=== PATIENT | male | born 1985 | race Caucasian/White ===

== ENCOUNTER 2021-03-11 09:32 | Emergency (ER) | payer SELFPAY ==
[2021-03-11 09:41] VITALS: BP 124/84; PULSE 66; TEMP 97; BMI 33.0
[2021-03-11] MEDS ORDERED: SODIUM CHLORIDE 1,000 ML IV STA (10:05)
[2021-03-11] MEDS ORDERED: morphine CARPU-JECT 4 MG/1 ML DISP.SYRIN IVPUSH ONE (10:05)
[2021-03-11] MEDS ORDERED: ONDANSETRON 4 MG/2 ML VIAL IVPUSH ONE (10:05)
[2021-03-11] MEDS ORDERED: morphine SULFATE 4 MG/ML VIAL ONE (10:54)
[2021-03-11] MEDS ORDERED: ONDANSETRON 4 MG/2 ML VIAL ONE (10:54)
[2021-03-11 11:02] LABS: BASO % 0.5 % (0-2.0); EOS % 0.4 % (0-4.5); HEMATOCRIT 40.5 % (35.4-49); LYMPH % 18.2 % (8-40); MCH 31.6 pg (25.7-33.7); MCHC 34.5 g/dl (32.0-35.9); MEAN CELL VOLUME 91.4 fl (80-96); MEAN PLT VOLUME 8.6 fl (7.5-11.1); NEUT % 75.9 % (42.8-82.8); PLATELET COUNT 213 10^3/uL (134-434); RBC 4.43 M/mm3 (4.00-5.60); RDW 13.1 % (11.9-15.9); WHITE BLOOD COUNT 8.1 K/mm3 (4.0-10.0)
[2021-03-11 11:21] LABS: CALCIUM 8.9 mg/dL (8.5-10.1)
[2021-03-11 11:22] LABS: ALBUMIN 4.3 g/dl (3.4-5.0); BLOOD UREA NITROGEN 14.6 mg/dL (7-18)
[2021-03-11 11:25] LABS: CREATININE 1.2 mg/dL (0.55-1.3)
[2021-03-11 11:26] LABS: BILIRUBIN,TOTAL 0.6 mg/dL (0.2-1)
[2021-03-11 11:27] LABS: TOT PROT 7.2 g/dl (6.4-8.2)
[2021-03-11 11:45] LABS: EPI CELLS 3 /uL (0-25.1); HYALINE CASTS 1 /uL (0-3.1); URINE APPEARANCE TURBID; URINE BACTERIA 2 /uL (0-1359); URINE BILIRUBIN NEGATIVE (NEGATIVE); URINE COLOR DK YELLOW; URINE GLUCOSE (UA) NEGATIVE (NEGATIVE); URINE KETONE TRACE (NEGATIVE); URINE LEUK ESTERASE NEGATIVE (NEGATIVE); URINE NITRITE NEGATIVE (NEGATIVE); URINE PROTEIN 1+ (NEGATIVE); URINE WBC 30 /uL (0-25.8)
[2021-03-11] MEDS ORDERED: TAMSULOSIN HCL 0.4 MG CAP PO ONE (12:25)
[2021-03-11] MEDS ORDERED: TAMSULOSIN HCL 0.4 MG CAP ONE (12:40)
[2021-03-11 12:56] LABS: URINE RBC 831.9 /uL (0-23.9)
== END 2021-03-11 12:56 | disposition home or self-care (01) ==
LOC: JER 09:32
PROC: 3E033GC Introduction of Other Therapeutic Substance into Peripheral Vein, Percutaneous Approach (ICD-10-PCS; principal; 2021-03-11)
DX: N20.0 Calculus of kidney (principal)
CPT/HCPCS: 36415; 74176-TC; 80053; 81003; 85025; 87086; 99285-25

== ENCOUNTER 2021-07-03 08:49 | Day surgery (SDC) | payer OTHER ==
[2021-06-28 18:02] VITALS: BMI 33.4
[2021-07-03 09:15] VITALS: TEMP 98.9
[2021-07-03] MEDS ORDERED: ceFAZolin 2 GRAM PREMIX BAG IVPB ONE (11:20)
[2021-07-03] MEDS ORDERED: MIDAZOLAM HCL 2 MG/2 ML SINGLE DOSE VIAL ONE ×2 (11:22)
[2021-07-03] MEDS ORDERED: PROPOFOL 20 ML ONE ×2 (11:24→11:38)
[2021-07-03 13:42] VITALS: BP 130/60; PULSE 54
== END 2021-07-03 13:10 | disposition home or self-care (01) ==
LOC: JASU-SURG 08:49
PROVIDERS: ATTEND Urology
PROC: 0TF4XZZ Fragmentation in Left Kidney Pelvis, External Approach (ICD-10-PCS; principal; 2021-07-03 10:30)
DX: N20.0 Calculus of kidney (principal)